=== PATIENT | male | born 1995 | race Caucasian/White ===

== ENCOUNTER 2017-10-14 17:38 | Emergency (ER) | payer OTHER ==
[2017-10-14 17:53] VITALS: BP 156/95; PULSE 95; RESP 16; TEMP 98.1; O2SAT 99
[2017-10-14 18:46] LABS: BASOPHIL % 0.2 % (0.0-2.0); EOSINOPHIL % 0.1 % (0.0-4.0); HEMATOCRIT 42.6 % (39.0-51.0); HEMOGLOBIN 14.7 GM/DL (13.0-17.0); LYMPH % 20.4 % (9.0-44.0); LYMPHOCYTE # 1.4 TH/MM3 (1.0-4.8); MEAN CELL VOLUME 89.6 FL (80.0-100.0); MEAN CORPUSCULAR HEMOGLOBIN 30.9 PG (27.0-34.0); MEAN CORPUSCULAR HGB CONC 34.5 % (32.0-36.0); MEAN PLATELET VOLUME 9.2 FL (7.0-11.0); MONO % 6.3 % (0.0-8.0); MONOCYTE # 0.4 TH/MM3 (0-0.9); PLATELET COUNT 208 TH/MM3 (150-450); RED BLOOD COUNT 4.76 MIL/MM3 (4.50-5.90); WHITE BLOOD COUNT 6.9 TH/MM3 (4.0-11.0)
[2017-10-14 19:00] LABS: ALBUMIN 4.8 GM/DL (3.4-5.0); AST (GOT) 15 U/L (15-37); BICARBONATE 27.3 MEQ/L (21.0-32.0); BLOOD UREA NITROGEN 13 MG/DL (7-18); CALCIUM 9.1 MG/DL (8.5-10.1); CHLORIDE 104 MEQ/L (98-107); CREATININE 1.01 MG/DL (0.60-1.30); GLOMERULAR FILTRATION RATE 92 ML/MIN (>89); GLUCOSE,RANDOM 86 MG/DL (74-106); SODIUM (NA) 138 MEQ/L (136-145)
[2017-10-14 19:02] LABS: ALT (GPT) 25 U/L (12-78)
[2017-10-14 19:03] LABS: ALKALINE PHOSPHATASE 67 U/L (45-117); TOTAL BILIRUBIN ADULT 0.7 MG/DL (0.2-1.0); TOTAL PROTEIN 8.7 GM/DL (6.4-8.2)
--- NOTE | 2017-10-14 22:18 | PD ---
HPI Chief Complaint: Medical Clearance Time Seen by Provider: 21:37 Travel History International Travel<30 days: No Contact w/Intl Traveler<30days: No Traveled to known affect area: No History of Present Illness HPI 22-year-old male came to the emergency room with a complaint of alternating hemiparesthesia since past 4 days. Patient says today itself he started off with the paresthesia on the left side which alternated to the right side. He says it feels slightly diminished sensation like his arm and legs are falling asleep. It is his entire half of the body that happens. No history of speech issues or gait problems. He is otherwise a healthy patient. Vital signs were stable. Patient does not smoke and drinks occasionally. He has been doing his masters at [employer] and getting on an average of 6 hours of sleep every day. He does not appear to be in any significant distress. Blood work was ordered and done while he was in triage. [facility]LY [facility] Past Medical History Narrative Medical List of his past medical, surgical, social and family history is reviewed from the nursing note Allergies-Medications (Allergen,Severity, Reaction): Coded Allergies: No Known Allergies (Unverified , 10/14/17) Comments No known drug allergies. Reported Meds & Prescriptions Reported Meds & Active Scripts Active No Active Prescriptions or Reported Medications Narrative Medication Awaiting for the nurse to do the med reconciliation. Review of Systems Except as stated in HPI: all other systems reviewed are Neg Neurologic: Positive: Paresthesia Physical Exam Narrative GENERAL: Awake, alert, no obvious distress SKIN: Focused skin assessment warm/dry. HEAD: Atraumatic. Normocephalic. EYES: Pupils equal and round. No scleral icterus. No injection or drainage. ENT: No nasal bleeding or discharge. Mucous membranes pink and moist. NECK: Trachea midline. No JVD. CARDIOVASCULAR: Regular rate and rhythm. No murmur appreciated. RESPIRATORY: No accessory muscle use. Clear to auscultation. Breath sounds equal bilaterally. GASTROINTESTINAL: Abdomen soft, non-tender, nondistended. Hepatic and splenic margins not palpable. MUSCULOSKELETAL: No obvious deformities. No clubbing. No cyanosis. No edema. NEUROLOGICAL: Awake and alert. No obvious cranial nerve deficits. Motor grossly within normal limits. Normal speech. PSYCHIATRIC: Appropriate mood and affect; insight and judgment normal. Data Data Last Documented VS Vital Signs Date Time Temp Pulse Resp B/P (MAP) Pulse Ox O2 Delivery O2 Flow Rate FiO2 10/14/17 17:53 98.1 95 16 156/95 (115) 99 Orders Orders Complete Blood Count With Diff (10/14/17 17:56) Comprehensive Metabolic Panel (10/14/17 17:56) Electrocardiogram (10/14/17 ) Ct Brain W/O Iv Contrast(Rout) (10/14/17 ) Ed Discharge Order (10/14/17 22:53) Labs Laboratory Tests Test 10/14/17 18:18 White Blood Count 6.9 TH/MM3 Red Blood Count 4.76 MIL/MM3 Hemoglobin 14.7 GM/DL Hematocrit 42.6 % Mean Corpuscular Volume 89.6 FL Mean Corpuscular Hemoglobin 30.9 PG Mean Corpuscular Hemoglobin Concent 34.5 % Red Cell Distribution Width 13.0 % Platelet Count 208 TH/MM3 Mean Platelet Volume 9.2 FL Neutrophils (%) (Auto) 73.0 % Lymphocytes (%) (Auto) 20.4 % Monocytes (%) (Auto) 6.3 % Eosinophils (%) (Auto) 0.1 % Basophils (%) (Auto) 0.2 % Neutrophils # (Auto) 5.0 TH/MM3 Lymphocytes # (Auto) 1.4 TH/MM3 Monocytes # (Auto) 0.4 TH/MM3 Eosinophils # (Auto) 0.0 TH/MM3 Basophils # (Auto) 0.0 TH/MM3 CBC Comment DIFF FINAL Differential Comment Blood Urea Nitrogen 13 MG/DL Creatinine 1.01 MG/DL Random Glucose 86 MG/DL Total Protein 8.7 GM/DL Albumin 4.8 GM/DL Calcium Level 9.1 MG/DL Alkaline Phosphatase 67 U/L Aspartate Amino Transf (AST/SGOT) 15 U/L Alanine Aminotransferase (ALT/SGPT) 25 U/L Total Bilirubin 0.7 MG/DL Sodium Level 138 MEQ/L Potassium Level 3.9 MEQ/L Chloride Level 104 MEQ/L Carbon Dioxide Level 27.3 MEQ/L Anion Gap 7 MEQ/L Estimat Glomerular Filtration Rate 92 ML/MIN [facility] Medical Decision Making Medical Screen Exam Complete: Yes Emergency Medical Condition: Yes Medical Record Reviewed: Yes Interpretation(s) Twelve-lead EKG was reviewed by me. Normal sinus rhythm, normal axis, nonspecific ST-T wave changes. Heart rate of 65 bpm Differential Diagnosis Anxiety, stress-induced paresthesia, sleep insufficient Narrative Course 10:17 PM blood test results are back and within acceptable limits. Awaiting for the CAT scan report. If that is negative patient will be discharged home. I recommended him to abstain from alcohol and try to get more sleep. There has to be some lifestyle improvement. He needs to follow-up with his primary care. Procedures EKG Prior to Arrival: No Diagnosis Primary Impression: Paresthesia Additional Impression: Problems related to lack of adequate sleep Referrals: Primary Care Physician Additional Instructions: Return to the ER if condition worsens or any other new concerns. He should get at least 8 hours of sleep every day in order to feel healthy and brain functioning normal. Do not drink alcohol to symptoms improve. Follow-up with primary care. Scripts No Active Prescriptions or Reported Meds Disposition: 01 DISCHARGE HOME Condition: Stable Tracey Etienne MD Oct 14, 2017 22:18
--- NOTE | 2017-10-14 22:36 | RADRPT ---
EXAM DATE/TIME: 10/14/2017 21:58 [place] COMPARISON: No previous studies available for comparison. INDICATIONS : Dizziness, weakness. RADIATION DOSE: 56.35 CTDIvol (mGy) MEDICAL HISTORY : None SURGICAL HISTORY : None. ENCOUNTER: Initial ACUITY: 1 day PAIN SCALE: 0/10 LOCATION: cranial TECHNIQUE: Multiple contiguous axial images were obtained of the head. Using automated exposure control and adj ustment of the mA and/or kV according to patient size, radiation dose was kept as low as reasonably a chievable to obtain optimal diagnostic quality images. DICOM format image data is available electro nically for review and comparison. FINDINGS: CEREBRUM: The ventricles are normal for age. No evidence of midline shift, mass lesion, hemorrhage or acute in farction. No extra-axial fluid collections are seen. POSTERIOR FOSSA: The cerebellum and brainstem are intact. The 4th ventricle is midline. The cerebellopontine angle i s unremarkable. EXTRACRANIAL: The visualized portion of the orbits is intact. SKULL: The calvaria is intact. No evidence of skull fracture. CONCLUSION: 1. Negative noncontrast CT brain. Rigo Angeles MD on October 14, 2017 at 22:34 Board Certified Radiologist. This report was verified electronically.
--- NOTE | 2017-10-15 21:18 | EKG ---
Date Performed: 10/14/2017 Time Performed: 21:55:57 PTAGE: 22 years EKG: Sinus rhythm WITH SINUS ARRHYTHMIA BORDERLINE RIGHT AXIS DEVIATION BORDERLINE ECG NO PREVIOUS TRACING DOCTOR: Bishnu Doe Interpretating Date/Time 10/15/2017 21:17:28
== END 2017-10-14 23:44 | disposition home or self-care (01) ==
LOC: NEPD 17:38
DX: R20.2 Paresthesia of skin (principal); I49.9 Cardiac arrhythmia, unspecified; Z72.820 Sleep deprivation
CPT/HCPCS: 70450; 80053; 85025; 93005; 99285